=== PATIENT | female | born 1980 | race Asian ===

== ENCOUNTER 2018-12-17 22:58 | Emergency (ER) | payer OTHER ==
[~2018-12-17] VITALS: Ht 160 cm; Wt 53.5 kg
[2018-12-17 23:38] VITALS: BP 142/83
== END 2018-12-17 23:38 | disposition home or self-care (01) ==
LOC: ED 22:58
DX: T63.461A Toxic effect of venom of wasps, accidental (unintentional), initial encounter (principal); Y92.89 Other specified places as the place of occurrence of the external cause
CPT/HCPCS: J2920

== ENCOUNTER 2019-06-06 10:38 | Emergency (ER) | payer OTHER ==
[~2019-06-06] VITALS: Ht 160 cm; Wt 52.8 kg
[2019-06-06 10:44] VITALS: Ht 160 cm; Wt 52.8 kg
[2019-06-06 11:55] VITALS: BP 128/79
== END 2019-06-06 11:55 | disposition home or self-care (01) ==
LOC: ED 10:38
DX: S61.215A Laceration without foreign body of left ring finger without damage to nail, initial encounter (principal); S61.012A Laceration without foreign body of left thumb without damage to nail, initial encounter; W26.0XXA Contact with knife, initial encounter; Y93.89 Activity, other specified; Y92.89 Other specified places as the place of occurrence of the external cause; Y99.8 Other external cause status
CPT/HCPCS: 90715